=== PATIENT | female | born 1980 | race Caucasian/White ===

== ENCOUNTER 2022-09-11 15:18 | Emergency (ER) | payer OTHER, SELFPAY ==
[2022-09-11 15:33] VITALS: BP 119/75; PULSE 85; RESP 18; TEMP 36.9; O2SAT 98
--- NOTE | 2022-09-11 15:54 | ED.URI ---
HPI - URI/Sore Throat General Chief Complaint: Upper Respiratory Infection Stated Complaint: sorethroat Time Seen by Provider: 09/11/22 15:27 Source: patient Mode of arrival: ambulatory Limitations: no limitations History of Present Illness HPI Narrative: 41-year-old female presents to [facility] with complaints of sore throat, body aches and congestion for the past 3 days. Patient reports that her daughter tested positive for strep throat today. Patient has been alternating Motrin and Tylenol as needed. Patient reports that she received an infusion today for her rheumatoid arthritis. Patient denies cough, shortness of breath, wheezing, nausea diarrhea. MD elicited complaint: sore throat and nasal congestion Onset (ago): day(s) (3) Able to tolerate fluids by mouth: Yes Exacerbating factors: swallowing Context: sick contacts Treatments prior to arrival: acetaminophen and ibuprofen Related Data Home Medications Medication Instructions Recorded Confirmed bupropion HCl 150 mg tablet,12 hr 150 mg PO DIRECTED 09/11/22 09/11/22 sustained-release fluticasone furoate 100 1 ea inhalation DIRECTED 09/11/22 09/11/22 mcg-vilanterol 25 mcg/dose inhalation powder (Breo Ellipta) hydrochlorothiazide 12.5 mg tablet 12.5 mg DIRECTED 09/11/22 09/11/22 montelukast 10 mg tablet 10 mg DIRECTED 09/11/22 09/11/22 Allergies Allergy/AdvReac Type Severity Reaction Status Date / Time No Known Drug Allergies Allergy Verified 10/23/12 16:49 Review of Systems Constitutional: Constitutional: Denies fatigue, Denies fever(s) and Denies weakness Comments: Body aches ENT: Denies dysphagia, Denies vertigo, Denies dizziness, Denies epistaxis, Reports nasal congestion and Reports sore throat Respiratory: Respiratory: Denies cough, Denies dyspnea and Denies wheezing Gastrointestinal: Gastrointestinal: Denies diarrhea, Denies nausea and Denies vomiting Integumentary/Breasts: Skin/Breast: Denies rash Neurologic: Denies vertigo and Denies dizziness PMF Family History Family History Father Family history of suicide Mother Family history of rheumatoid arthritis Family history of arthritis Social History Social History Smoking status: Current every day smoker Alcohol intake: never Substance use type: marijuana Comments At time of signature, I agree with nursing past medical, surgical, social and family history. There is no relevant family history pertinent to the presenting complaint. Exam Const: General: healthy appearing and no acute distress Nutritional Appearance: well nourished Orientation/consciousness: patient oriented x3 Limitations: no limitations HENMT: Head: normal to inspection Ears: external ears normal, TM's normal bilaterally and EAC's normal Face/Nose/Sinus: Normal external nose present Face and sinus: normal facial exam Mouth: Yes Normal oral and palatal mucosa present, Yes lip normal and Yes moist mucous membranes Teeth and gingiva: dentition normal Throat: uvula midline Other: Mild erythema and swelling noted to bilateral tonsils. Uvula is midline and there is no peritonsillar abscess noted Eyes: Conjunctivae: conjunctivae normal Neck: Neck: normal visual inspection Resp: Effort & Inspection: normal respiratory effort, not labored and not tachypneic Auscultation: clear to auscultation bilaterally, no crackles, no rales, no rhonchi and no wheezes Cardio: Rate: regular rate Rhythm: regular rhythm Heart sounds: no murmurs Skin: General skin exam: normal color Rashes: no rashes Neuro: General: patient oriented x3 Speech: normal speech Psych: Affect: normal affect Attitude: cooperative Course Course Level of Care: Express Care Visit Vital Signs Vital signs: Vital Signs Temperature 36.9 C 09/11/22 15:33 Pulse Rate 85 09/11/22 15:33 Respiratory Rate 18
== END 2022-09-11 16:05 | disposition home or self-care (01) ==
PROVIDERS: Emergency Provider Nurse Practitioner Family; PCP Emergency Medicine
DX: J02.0 Streptococcal pharyngitis (principal); J45.909 Unspecified asthma, uncomplicated; M06.9 Rheumatoid arthritis, unspecified
CPT/HCPCS: 87880; 99213; G0463

== ENCOUNTER 2022-09-29 17:29 | Emergency (ER) | payer OTHER, SELFPAY ==
[2022-09-29 17:46] VITALS: BP 126/71; PULSE 86; RESP 18; TEMP 36.8; O2SAT 97
--- NOTE | 2022-09-29 18:05 | ED.URI ---
HPI - URI/Sore Throat General Chief Complaint: Upper Respiratory Infection Stated Complaint: sore throat, tongue pain Time Seen by Provider: 09/29/22 18:05 Source: patient, RN notes reviewed and old records reviewed Mode of arrival: ambulatory Limitations: no limitations History of Present Illness HPI Narrative: 41-year-old female presents to the [facility] with complaints of a sore throat. patient reports that her daughter tested positive again for strep throat. Wants to be tested. recently on amoxicillin for strep throat 09/11/22 Patient denies any other symptom Related Data Home Medications Medication Instructions Recorded Confirmed bupropion HCl 150 mg tablet,12 hr 150 mg PO DIRECTED 09/11/22 09/29/22 sustained-release fluticasone furoate 100 1 ea inhalation DIRECTED 09/11/22 09/29/22 mcg-vilanterol 25 mcg/dose inhalation powder (Breo Ellipta) montelukast 10 mg tablet 10 mg DIRECTED 09/11/22 09/29/22 albuterol sulfate 2.5 mg/3 mL 2.5 mg inhalation PRN shortness of 09/29/22 09/29/22 (0.083 %) solution for nebulization breath Allergies Allergy/AdvReac Type Severity Reaction Status Date / Time egg AdvReac Gastrointestinal Verified 09/29/22 18:19 Upset Review of Systems Review of Systems: All systems reviewed & are unremarkable except as noted in HPI and below Constitutional: Constitutional: Reports no additional constitutional complaints Eyes: Eyes: Reports no additional eye complaints ENT: Reports as per HPI and Reports sore throat Cardiovascular: Cardiovascular: Reports no additional cardiovascular complaints, Denies chest pain and Denies dyspnea Respiratory: Respiratory: Reports no additional respiratory complaints, Denies chest congestion, Denies cough and Denies dyspnea Gastrointestinal: Gastrointestinal: Reports no additional gastrointestinal complaints, Denies abdominal pain, Denies nausea and Denies vomiting Musculoskeletal: Musculoskeletal: Reports no additional musculoskeletal complaints Integumentary/Breasts: Skin/Breast: Reports system reviewed and no additional complaints, except as docu Neurologic: Reports system reviewed and no additional complaints, except as documented Psychiatric: Psychiatric: Reports no additional psychiatric complaints Allergic/Immunologic: Allergic/Immunologic: Reports no additional allergic/immunologic complaints PMFSH Family History Family History Father Family history of suicide Mother Family history of rheumatoid arthritis Family history of arthritis Social History Social History Smoking status: Current every day smoker Alcohol intake: never Substance use type: marijuana Comments At the time of my signature, I reviewed and agree with the nursing past medical, surgical, social, and family history. There is no relevant family history pertinent to the patient complaint. Exam Const: General: cooperative, healthy appearing, comfortable, no acute distress, well developed, alert and well nourished Nutritional Appearance: well nourished Orientation/consciousness: patient oriented x3 Limitations: no limitations HENMT: Head: normal to inspection Ears: hearing grossly normal bilaterally and external ears normal Face/Nose/Sinus: Normal external nose present, Normal nares present, Normal nasal mucous membranes and turbinates present and normal facial exam Face and sinus: normal facial exam Mouth: Yes Normal oral and palatal mucosa present, Yes lip normal and Yes moist mucous membranes Throat: posterior oropharynx normal and uvula midline Eyes: General: appearance normal, both eyes and all related structures Alignment and Position: alignment normal Periorbital: periorbital findings normal Conjunctivae: conjunctivae normal Pupils: Equal, round and reactive pupils present EOM: EOMs intact bilaterally Neck: Neck: normal
== END 2022-09-29 18:29 | disposition home or self-care (01) ==
PROVIDERS: Emergency Provider Nurse Practitioner; PCP Emergency Medicine
DX: J02.9 Acute pharyngitis, unspecified (principal); F17.200 Nicotine dependence, unspecified, uncomplicated
CPT/HCPCS: 87081; 87880; 99213; G0463

== ENCOUNTER 2023-04-18 19:46 | Emergency (ER) | payer OTHER, SELFPAY ==
--- NOTE | ~2023-04-18 | CT_ITS ---
CT of the Abdomen and Pelvis: Indication: Abdominal pain Technique: 2.5 mm axial scans were obtained through the abdomen and pelvis following intravenous adm inistration of 100 cc of Omnipaque 350. Dose reduction technique was used on this scan by utilizing a utomated exposure control and iterative reconstruction technique. The dose-length product (DLP) was 6 09.62 mGy-cm. COMPARISON: 11/11/2011 Findings: Scans through the lung bases are unremarkable. The liver, spleen, pancreas, gallbladder, adrenals and kidneys are within normal limits. No evidence of aortic aneurysm. No lymphadenopathy. No bowel obstruction or bowel wall thickening. There is no evidence to suggest acute appendicitis. Images through the pelvis were performed. Urinary bladder unremarkable. No adnexal mass seen. No asci dary. Impression: No significant abnormalities seen. Reviewed, dictated and finalized at [facility]. Impression: No significant abnormalities seen.
[2023-04-18 20:06] VITALS: BP 123/68; PULSE 83; RESP 18; TEMP 36.4; O2SAT 98
[2023-04-18 23:58] LABS: Basophils Absolute Auto 0.1 K/mm3 (0.0-0.1); Basophils Percent Auto 0.5 % (0.2-1.2); Eosinophils Absolute Auto 0.2 K/mm3 (0-0.3); Eosinophils Percent Auto 1.1 % (0-4.4); Hematocrit 40.7 % (37.0-47.0); Hemoglobin 13.1 g/dL (12.0-15.0); Immature Granulocyte Absolute 0.06 K/mm3 (0.00-0.031); Immature Granulocyte Percent A 0.4 % (0-0.5); Lymphocytes Absolute Auto 4.64 K/mm3 (0.9-3.2); Lymphocytes Percent Auto 28.1 % (18.3-44.2); Mean Corpuscular HGB Conc 32.2 g/dl (32-36); Mean Corpuscular Hemoglobin 29.2 pg (26-34); Mean Corpuscular Volume 90.6 fl (80-100); Mean Platelet Volume 9.1 fl (7.4-10.4); Monocytes Absolute Auto 1.2 K/mm3 (0.1-0.6); Monocytes Percent Auto 7.5 % (2.6-8.5); Neutrophils Absolute Auto 10.3 K/mm3 (1.3-6.7); Neutrophils Percent Auto 62.4 % (45.5-73.1); Platelet Count Result 479 k/mm3 (150-375); Red Blood Count 4.49 M/mm3 (4.2-5.4); Red Cell Distribution Width 13.2 % (11.5-14.5); White Blood Count 16.5 K/mm3 (4.5-10.0)
[2023-04-18 23:59] LABS: Appearance Urine Clear (Clear); Bilirubin Urine Negative (Negative); Blood Urine Negative (Negative); Color Urine Yellow (Yellow); Glucose Urine UA Negative (Negative); Ketones Urine Negative (Negative); Leukocyte Esterase Ur Negative LEU/UL (Negative); Nitrate Urine Negative (Negative); Protein Urine Negative (Negative); Specific Grav Ur 1.009 (1.001-1.035); Urobilinogen Urine 0.2 mg/dL (<2.0); pH Urine 6.5 (5.0-9.0)
[2023-04-19 00:09] LABS: Add Urine Microscopic? NO
[2023-04-19 00:11] LABS: Platelet Estimate Increased (Adequate)
[2023-04-19 00:12] LABS: Atypical Lymphocytes Present; Hypochromasia 1+ (NORMAL); Schistocytes None Seen (NORMAL); Stomatocytes 1+ (NORMAL)
[2023-04-19 00:18] LABS: Alanine Aminotransferase 19 U/L (6-35); Albumin Level 4.2 g/dL (3.5-5.1); Alkaline Phosphatase 80 U/L (38-126); Anion Gap 4 mmol/L (8-16); Aspartate Amino Transferase 25 U/L (14-36); Bilirubin,Total 0.4 mg/dL (0.2-1.3); Blood Urea Nitrogen 11 mg/dL (7-17); Carbon Dioxide 30 mmol/L (22-30); Chloride 103 mmol/L (98-107); Estimated CRCL calculation 67 ml/min; Estimated Glomerular Filt Rate > 60; Glucose 99 mg/dL (65-110); Lipase 74 U/L (23-300); Potassium 3.8 mmol/L (3.4-5.0); Sodium 137 mmol/L (137-145)
[2023-04-19 01:50] VITALS: BP 145/89; PULSE 76; RESP 16; O2SAT 93
[2023-04-19 02:11] LABS: Pregnancy On Board Control Positive; Urine Pregnancy Test Negative
--- NOTE | 2023-04-19 02:24 | ED.ABDPAIN ---
HPI - Abdominal Pain General Chief Complaint: Abdominal Pain Stated Complaint: right flank pain Time Seen by Provider: 04/19/23 02:08 Source: patient Limitations: no limitations History of Present Illness MD elicited complaint: abdominal pain Pertinent past history: kidney stones Onset (ago): hour(s) (approximately 05:30 04/18) Pain Consistency: constant Location: RLQ Severity: moderate Pain scale (0-10): 6 Quality: stabbing Migration to: other (right groin) Exacerbating factors: nothing Relieving factors: movement (Tylenol helped) Context: denies foreign travel, denies possible food poisoning, denies sick contacts, denies recent antibiotic use, denies recent surgery/procedure, denies recent injury or confirms history of similar episodes (kidney stone, ovarian cyst rupture) Associated symptoms: denies other symptoms, nausea and other (no vaginal discharge.) Treatments prior to arrival: other (tylenol) Related Data Home Medications Medication Instructions Recorded Confirmed bupropion HCl 150 mg tablet,12 hr 150 mg PO DIRECTED 09/11/22 09/29/22 sustained-release fluticasone furoate 100 1 ea inhalation DIRECTED 09/11/22 09/29/22 mcg-vilanterol 25 mcg/dose inhalation powder (Breo Ellipta) montelukast 10 mg tablet 10 mg DIRECTED 09/11/22 09/29/22 albuterol sulfate 2.5 mg/3 mL 2.5 mg inhalation PRN shortness of 09/29/22 09/29/22 (0.083 %) solution for nebulization breath Allergies Allergy/AdvReac Type Severity Reaction Status Date / Time egg AdvReac Gastrointestinal Verified 04/18/23 20:18 Upset Review of Systems Review of Systems: A 10 system review of systems was completed on the patient and is negative except for what is stated in the HPI. Nursing and ancillary documentation was reviewed. [facility] Family History Family History Father Family history of suicide Mother Family history of rheumatoid arthritis Family history of arthritis Social History Social History Smoking status: Current every day smoker Alcohol intake: never Substance use type: marijuana Comments At time of signature, I have reviewed and agree with nursing past medical, surgical, social and family history unless otherwise noted. Please see the nursing chart for further information. There is no relevant family history pertinent to the presenting complaint. Exam Narrative: CONST: No acute distress. Well nourished. HENMT: Head is normocephalic and atraumatic. Tacky mucous membranes. No posterior oropharynx erythema. EYES: No conjunctival icterus, injection, or pallor. PERRL. NECK: No meningeal signs. RESP: Able to speak in full sentences. Normal respiratory effort. CTAB. CARDIO: Regular rate. Regular rhythm. 2+ DP and radial pulses bilaterally. GI: Nondistended. Soft. Mild tenderness to palpation in the RLQ near Mcburney's point. Negative Obturator sign and Rovsing sign. Negative luna's sign. No rebound or guarding or rigidity. No palpable masses or hernias. : No CVA tenderness to palpation. SKIN: No rashes or lesions noted on exposed skin. NEURO: Oriented x3. Moves all extremities. EXTREM: No pedal edema. PSYCH: Normal affect. Course Vital Signs Vital signs: Vital Signs Temperature 97.6 F 04/18/23 20:06 Pulse Rate 83 04/18/23 20:06 Respiratory Rate 18 04/18/23 20:06 Blood Pressure 123/68 04/18/23 20:06 Pulse Oximetry 98 04/18/23 20:06 Oxygen Delivery Room Air 04/18/23 20:06 Temperature 97.6 F 04/18/23 20:06 Pulse Rate 94 04/19/23 07:16 Respiratory Rate 24 H 04/19/23 07:16 Blood Pressure 109/69 04/19/23 07:16 Pulse Oximetry 95 04/19/23 07:16 Oxygen Delivery Room Air 04/18/23 20:06 MDM - Abdominal Pain MDM Narrative Medical decision making narrative: Patient presents with the above complaint. Initial vitals are remarkable for no
[2023-04-19] MEDS: LACTATED RINGERS 1,000 ML 999 ML IV CONT (02:37)
[2023-04-19] MEDS: ONDANSETRON INJ 4 MG/2 ML VIAL IV PUSH (02:38)
[2023-04-19 02:39] VITALS: BP 132/78; PULSE 66; RESP 19; O2SAT 97
[2023-04-19] MEDS: MORPHINE SULFATE (*CRX) 4 MG/ML INJ IV PUSH (02:39)
[2023-04-19 03:01] LABS: Magnesium 2.2 mg/dL (1.6-2.3)
[2023-04-19 03:04] LABS: Prothrombin Time 13.5 Seconds (11.1-14.7)
[2023-04-19 03:05] LABS: Partial Thromboplastin Time 30.5 SECONDS (22.3-36.8)
[2023-04-19 03:50] VITALS: BP 107/65; PULSE 71; RESP 20; O2SAT 96
[2023-04-19 05:23] VITALS: BP 101/59; PULSE 64; RESP 18; O2SAT 97
[2023-04-19 07:02] VITALS: BP 109/96; PULSE 66; RESP 16; O2SAT 95
--- NOTE | 2023-04-19 07:03 | PC.NURSE ---
This RN PO challenged pt. Pt tolerated well.
[2023-04-19 07:16] VITALS: BP 109/69; PULSE 94; RESP 24; O2SAT 95
== END 2023-04-19 07:21 | disposition home or self-care (01) ==
PROVIDERS: Emergency Provider Student in an Organized Health Care Education/Training Program; PCP Emergency Medicine
DX: R10.31 Right lower quadrant pain (principal); M06.9 Rheumatoid arthritis, unspecified; F17.200 Nicotine dependence, unspecified, uncomplicated
CPT/HCPCS: 36415; 74177; 80053; 81003; 81025; 83690; 83735; 85025; 85610; 85730; 86850; 86900; 86901; 96361; 96374; 96375; 99284; J2270; J2405; J7120; Q9967